=== PATIENT | female | born 1980 | race Caucasian/White ===

== ENCOUNTER 2019-12-01 09:02 | Emergency (ER) | payer MEDICAID ==
--- NOTE | 2019-12-01 09:37 | EDM.PDOC ---
ED HPI GENERAL MEDICAL PROBLEM - General Chief Complaint: Upper Extremity Injury/Pain Stated Complaint: RT SHOULDER PAIN Time Seen by Provider: 12/01/19 09:15 Source of Information: Reports: Patient History Limitations: Reports: No Limitations - History of Present Illness INITIAL COMMENTS - FREE TEXT/NARRATIVE: The patient presents with right shoulder pain. This has been an ongoing problem since October 14. [place] was up [place] near [place] helping shovel some snow for her parents. She developed pain in her right shoulder. She went to the ER and had x-rays. That looked good. She saw her primary and went to PT. That did not help much. The next step is to see an orthopedic surgeon but she moved. She has limited range of motion with her shoulder due to pain. Onset: Gradual Duration: Week(s): Location: Reports: Upper Extremity, Right (shoulder) Quality: Reports: Sharp Severity: Moderate Improves with: Reports: Immobilization Worsens with: Reports: Movement Context: Denies: Trauma Associated Symptoms: Reports: No Other Symptoms Right Shoulder Pain Score (Numeric/FACES): 9 - Related Data Allergies Allergy/AdvReac Type Severity Reaction Status Date / Time metoclopramide Allergy Hives Verified 12/01/19 09:26 shellfish Allergy Airway Uncoded 12/01/19 09:26 Tightness Home Meds: Home Meds Divalproex Sodium [Depakote] 1 tab PO BID 12/01/19 [History] Hydrocodone/Acetaminophen [Hydrocodon-Acetaminophen 5-325] 1 - 2 each PO Q6HR PRN #20 tablet 12/01/19 [Rx] Review of Systems - Review of Systems Review Of Systems: See Below Constitutional: Reports: No Symptoms Eyes: Reports: No Symptoms Ears: Reports: No Symptoms Nose: Reports: No Symptoms Mouth/Throat: Reports: No Symptoms Respiratory: Reports: No Symptoms Cardiovascular: Reports: No Symptoms GI/Abdominal: Reports: No Symptoms Genitourinary: Reports: No Symptoms Musculoskeletal: Reports: Shoulder Pain (Right) ED EXAM, GENERAL - Physical Exam Exam: See Below Exam Limited By: No Limitations General Appearance: Alert, No Apparent Distress Ears: Normal External Exam Nose: Normal Inspection Head: Atraumatic, Normocephalic Neck: Normal Inspection Respiratory/Chest: No Respiratory Distress, Lungs Clear, Normal Breath Sounds Cardiovascular: Regular Rate, Rhythm, No Edema, No Murmur GI/Abdominal: Soft, Non-Tender, No Organomegaly, No Mass Back Exam: Normal Inspection Extremities: Other (Pain upon palpation to the anterior right shoulder. Range of motion limited due to pain.) Course - Vital Signs Last Recorded V/S: Last Vital Signs Temp 99.3 F 12/01/19 09:13 Pulse 81 12/01/19 09:13 Resp 18 12/01/19 09:13 BP 122/86 12/01/19 09:13 Pulse Ox 98 12/01/19 09:13 Departure - Departure Time of Disposition: 09:40 Disposition: Home, Self-Care 01 Condition: Good Clinical Impression: Shoulder pain, right Qualifiers: Chronicity: chronic Qualified Code(s): M25.511 - Pain in right shoulder; G89.29 - Other chronic pain - Discharge Information *PRESCRIPTION DRUG MONITORING PROGRAM REVIEWED*: No *COPY OF PRESCRIPTION DRUG MONITORING REPORT IN PATIENT JEREMY: No Prescriptions: Hydrocodone/Acetaminophen [Hydrocodon-Acetaminophen 5-325] 1 - 2 each PO Q6HR PRN #20 tablet PRN Reason: Pain Referrals: PCP,None [Primary Care Provider] - Francisco Nguyen MD [Physician] - 1 Week Additional Instructions: Take motrin or tylenol for pain. If that does not help, try the hydrocodone. Please return if you are worse. Follow up with Dr Nguyen with a week or 2. Sepsis Event Note - Evaluation Sepsis Screening Result: No Definite Risk - Focused Exam Vital Signs: Vital Signs Temp Pulse Resp BP Pulse Ox 12/01/19 09:13 99.3 F 81 18 122/86 98 Date Exam was Performed: 12/01/19 Time Exam was Performed: 09:32
== END 2019-12-01 10:04 | disposition home or self-care (01) ==
LOC: JD.ED 09:02
DX: G89.29 Other chronic pain (principal); M25.511 Pain in right shoulder; Z88.8 Allergy status to other drugs, medicaments and biological substances; Z91.013 Allergy to seafood
CPT/HCPCS: 99283